=== PATIENT | male | born 1995 | race Caucasian/White ===

== ENCOUNTER 2022-08-16 03:06 | Emergency (ER) | payer OTHER, MEDICAID, SELFPAY ==
[2022-08-16] VITALS (48 sets, daily range): BP systolic 104–140; BP diastolic 56–92; PULSE 69–122; RESP 12–27; TEMP 36.6–37.8; O2SAT 94–98; BMI 25.7
--- NOTE | 2022-08-16 03:35 | PC.NURSE ---
[facility] called for treatment guidance. 24 hr observation, serial ekgs, seizure precautions, frequent VS monitoring recommended.
[2022-08-16 03:40] LABS: Add Manual Diff / Slide Review NO; Basophils Absolute Auto 0 /uL (0-100); Basophils Percent Auto 0.3 % (0-2); Eosinophils Absolute Auto 0 /uL (0-450); Eosinophils Percent Auto 0.3 % (2-4); Hematocrit 44.1 % (41-53); Lymphocytes Absolute Auto 1000 /uL (1100-4500); Lymphocytes Percent Auto 8.1 % (25-40); Mean Corpuscular Hemoglobin 29.6 PG (26-34); Monocytes Absolute Auto 700 /uL (0-900); Monocytes Percent Auto 5.4 % (3-14); Neutrophils Absolute Auto 10700 /uL (1500-7000); Neutrophils Percent Auto 85.9 % (50-75); Platelet Count 246 X10^3/uL (150-400); Red Blood Cell Count 5.07 X10^6/uL (4.5-5.9); Red Cell Distribution Width 12.1 % (11.6-14.8); White Blood Cell Count 12.5 X10^3/uL (4.5-11.0)
[2022-08-16 03:49] LABS: Acetaminophen < 10 ug/mL (10-30); Alanine Aminotransferase 22 IU/L (<50); Albumin 4.5 g/dL (3.5-5.0); Albumin Globulin Ratio 1.6 (1.0-2.8); Alkaline Phosphatase 74 U/L (38-126); Aspartate Aminotransferase 20 IU/L (17-59); BUN Creatinine Ratio 6.5 (6-22); Bilirubin Total 0.4 mg/dL (0.2-1.3); Blood Urea Nitrogen 5 mg/dL (9-20); Calcium 8.7 mg/dL (8.4-10.2); Carbon Dioxide 26 mmol/L (22-32); Chloride 102 mmol/L (98-107); Estimated Glomerular Filt Rate > 60 mL/min (>60); Ethanol (ETOH) < 10 mg/dL; Globulin 2.9 g/dL (1.7-4.1); Glucose 135 mg/dL (70-100); HEMOLYSIS < 15 (0-50); Potassium 3.1 mmol/L (3.4-5.1); Salicylate < 1.0 mg/dL (<20); Sodium 141 mmol/L (137-145); Total Protein 7.4 g/dL (6.3-8.2)
[2022-08-16 03:56] LABS: COVID19 -Nasal RAPID Negative (Negative)
[2022-08-16 04:03] LABS: Lithium < 0.2 mmol/L (0.6-1.2)
--- NOTE | 2022-08-16 04:28 | ED_ITS ---
HPI - Psych <Barry Lou, DO - Last Filed: 08/17/22 00:06> General Chief Complaint: Psychiatric Symptoms Stated Complaint: took 15 Bupropion Time Seen by Provider: 08/16/22 03:19 Source: patient Mode of arrival: Ambulatory Limitations: no limitations History of Present Illness HPI Narrative: Patient is a 26-year-old male who is here in the emergency department with his father for evaluation after at approximately midnight he took 11 bupropion pills and also some clonazepam. He states that he did this because he does not want to exist anymore. He does have a history of depression. Was seeing a mental health provider and a prescriber for his medications in [facility] but did recently moved to this area. It does not see anyone here locally. Denies any alcohol use but does admit to smoking marijuana. He has battled issues with depression but has never tried to hurt himself in the past. Related Data Home Medications Medication Instructions Recorded Confirmed bupropion HCl 300 mg 24 hr tablet, 300 mg PO DAILY 08/16/22 08/16/22 extended release buspirone 7.5 mg tablet 7.5 mg BID 08/16/22 08/16/22 clonazepam 1 mg tablet 1.5 mg DAILY 08/16/22 08/16/22 duloxetine 30 mg capsule,delayed 30 mg PO DAILY 08/16/22 08/16/22 release duloxetine 60 mg capsule,delayed 60 mg PO DAILY 08/16/22 08/16/22 release gabapentin 300 mg capsule 300 mg TID PRN Anxiety 08/16/22 08/16/22 hydroxyzine pamoate 25 mg capsule 25 mg TID 08/16/22 08/16/22 lithium carbonate 300 mg 900 mg PO BEDTIME 08/16/22 08/16/22 tablet,extended release lurasidone 20 mg tablet (Latuda) 40 mg BEDTIME 08/16/22 08/16/22 lurasidone 40 mg tablet (Latuda) 40 mg DAILY 08/16/22 08/16/22 prazosin 2 mg capsule 2 mg BEDTIME 08/16/22 08/16/22 risperidone 2 mg tablet 2 mg BEDTIME 08/16/22 08/16/22 suvorexant 10 mg tablet (Belsomra) 10 mg PO BEDTIME 08/16/22 08/16/22 tizanidine 4 mg tablet 4 mg BID 08/16/22 08/16/22 vortioxetine 20 mg tablet 20 mg DAILY 08/16/22 08/16/22 (Trintellix) Allergies Allergy/AdvReac Type Severity Reaction Status Date / Time No Known Drug Allergies Allergy Verified 08/16/22 03:20 Review of Systems <Barry Lou DO - Last Filed: 08/17/22 00:06> Constitutional Constitutional: Reports system reviewed and no additional complaints, except as documented Cardiovascular Cardiovascular: Reports system reviewed and no additional complaints, except as documented Respiratory Respiratory: Reports system reviewed and no additional complaints, except as documented Gastrointestinal Gastrointestinal: Reports system reviewed and no additional complaints, except as documented Genitourinary Genitourinary: Reports system reviewed and no additional complaints, except as documented Neurologic Neurologic: Reports system reviewed and no additional complaints, except as documented Psychiatric Psychiatric: Reports system reviewed and no additional complaints, except as documented Patient History <Barry Lou DO - Last Filed: 08/17/22 00:06> Medical History Depression Social History lives independently: Yes Exam <Barry Lou DO - Last Filed: 08/17/22 00:06> Initial Vital Signs Initial Vital Signs: Vital Signs Temperature 98.7 F 08/16/22 03:20 Pulse Rate 118 H 08/16/22 03:20 Respiratory Rate 14 08/16/22 03:20 Blood Pressure 138/92 H 08/16/22 03:20 Pulse Oximetry 98 08/16/22 03:20 Oxygen Delivery Method 08/16/22 03:20 Const General: cooperative and comfortable [facility] Head: normal to inspection Resp Effort & Inspection: normal respiratory effort Auscultation: clear to auscultation bilaterally Cardio Rate: tachycardic Rhythm: regular rhythm GI Inspection: normal to inspection Palpation: soft, No firm, No guarding and No tender Skin General: no rashes or lesions noted Neuro General: patient alert, patient awake and moves all extremities Extrem General: normal to inspection Psych Other: Well-appearing. His somewhat cooperative however is obviously reluctant to answer many questions. He does have outbursts where he cries in the room. Does not specifically say suicidal but states he does not want to ?exist ?anymore and he did take pills because of this. <Cathy Black MD - Last Filed: 08/21/22 05:01> Initial Vital Signs Initial Vital Signs: Vital Signs Temperature 98.7 F 08/16/22 03:20 Pulse Rate 118 H 08/16/22 03:20 Respiratory Rate 14 08/16/22 03:20 Blood Pressure 138/92 H 08/16/22 03:20 Pulse Oximetry 98 08/16/22 03:20 Oxygen Delivery Method 08/16/22 03:20 Course <Barry Lou DO - Last Filed: 08/17/22 00:06> Orders Ordered: Discontinued Medications Acetaminophen (Acetaminophen 325 Mg Tablet) 650 mg PO NOW ONE Stop: 08/16/22 06:12 Last Admin: 08/16/22 06:15 Dose: 650 mg Documented By: MADONNA Acetaminophen (Acetaminophen 325 Mg Tablet) 975 mg PO NOW ONE Stop: 08/16/22 17:30 Last Admin: 08/16/22 17:35 Dose: 975 mg Documented By: TAE Lidocaine HCl (Lidocaine 2% (Glydo) 6 Ml Gel) 6 ml TOP NOW ONE Stop: 08/16/22 04:13 Last Admin: 08/16/22 10:48 Dose: Not Given Documented By: YINKA Lorazepam (Lorazepam 2 Mg/Ml Inj) 1 mg IV NOW ONE Stop: 08/16/22 12:30 Last Admin: 08/16/22 12:35 Dose: 1 mg Documented By: TAE Lorazepam (Lorazepam 2 Mg/Ml Inj) 1 mg IV NOW ONE Stop: 08/16/22 14:47 Last Admin: 08/16/22 14:51 Dose: 1 mg Documented By: TAE Vital Signs Vital signs: Vital Signs - 8 hr 08/16/22 16:30 08/16/22 17:27 08/16/22 17:00 Temperature 100.1 F H Pulse Rate 90 Respiratory Rate 24 Blood Pressure 116/56 L Pulse Oximetry 95 Oxygen Delivery Method 08/16/22 17:00 08/16/22 17:30 08/16/22 18:00 Temperature Pulse Rate 91 H 88 Respiratory Rate 21 22 Blood Pressure 113/61 Pulse Oximetry 96 96 Oxygen Delivery Method 08/16/22 18:00 08/16/22 18:30 08/16/22 19:00 Temperature Pulse Rate 86 85 Respiratory Rate 20 20 Blood Pressure 104/63 Pulse Oximetry 95 94 Oxygen Delivery Method Room Air 08/16/22 19:00 08/16/22 19:30 08/16/22 20:00 Temperature Pulse Rate 82 79 75 Respiratory Rate 20 19 19 Blood Pressure Pulse Oximetry 94 94 95 Oxygen Delivery Method 08/16/22 20:30 08/16/22 20:59 08/16/22 21:00 Temperature Pulse Rate 81 78 Respiratory Rate 20 19 Blood Pressure 104/61 Pulse Oximetry 94 95 Oxygen Delivery Method 08/16/22 21:00 08/16/22 21:30 08/16/22 22:00 Temperature Pulse Rate 69 75 Respiratory Rate 17 18 Blood Pressure 120/70 Pulse Oximetry 96 95 Oxygen Delivery Method 08/16/22 22:00 08/16/22 22:30 08/16/22 23:00 Temperature Pulse Rate 69 84 Respiratory Rate 18 19 Blood Pressure 110/66 Pulse Oximetry 96 96 Oxygen Delivery Method 08/16/22 23:00 08/16/22 23:30 Temperature Pulse Rate 72 74 Respiratory Rate 17 18 Blood Pressure Pulse Oximetry 96 96 Oxygen Delivery Method <Cathy Black MD - Last Filed: 08/21/22 05:01> Orders Ordered: Discontinued Medications Acetaminophen (Acetaminophen 325 Mg Tablet) 650 mg PO NOW ONE Stop: 08/16/22 06:12 Last Admin: 08/16/22 06:15 Dose: 650 mg Documented By: MADONNA Acetaminophen (Acetaminophen 325 Mg Tablet) 975 mg PO NOW ONE Stop: 08/16/22 17:30 Last Admin: 08/16/22 17:35 Dose: 975 mg Documented By: TAE Lidocaine HCl (Lidocaine 2% (Glydo) 6 Ml Gel) 6 ml TOP NOW ONE Stop: 08/16/22 04:13 Last Admin: 08/16/22 10:48 Dose: Not Given Documented By: YINKA Lorazepam (Lorazepam 2 Mg/Ml Inj) 1 mg IV NOW ONE Stop: 08/16/22 12:30 Last Admin: 08/16/22 12:35 Dose: 1 mg Documented By: TAE Lorazepam (Lorazepam 2 Mg/Ml Inj) 1 mg IV NOW ONE Stop: 08/16/22 14:47 Last Admin: 08/16/22 14:51 Dose: 1 mg Documented By: TAE Vital Signs Vital signs: Vital Signs - 8 hr 08/16/22 16:30 08/16/22 17:27 08/16/22 17:00 Temperature 100.1 F H Pulse Rate 90 Respiratory Rate 24 Blood Pressure 116/56 L Pulse Oximetry 95 Oxygen Delivery Method 08/16/22 17:00 08/16/22 17:30 08/16/22 18:00 Temperature Pulse Rate 91 H 88 Respiratory Rate 21 22 Blood Pressure 113/61 Pulse Oximetry 96 96 Oxygen Delivery Method 08/16/22 18:00 08/16/22 18:30 08/16/22 19:00 Temperature Pulse Rate 86 85 Respiratory Rate 20 20 Blood Pressure 104/63 Pulse Oximetry 95 94 Oxygen Delivery Method Room Air 08/16/22 19:00 08/16/22 19:30 08/16/22 20:00 Temperature Pulse Rate 82 79 75 Respiratory Rate 20 19 19 Blood Pressure Pulse Oximetry 94 94 95 Oxygen Delivery Method 08/16/22 20:30 08/16/22 20:59 08/16/22 21:00 Temperature Pulse Rate 81 78 Respiratory Rate 20 19 Blood Pressure 104/61 Pulse Oximetry 94 95 Oxygen Delivery Method 08/16/22 21:00 08/16/22 21:30 08/16/22 22:00 Temperature Pulse Rate 69 75 Respiratory Rate 17 18 Blood Pressure 120/70 Pulse Oximetry 96 95 Oxygen Delivery Method 08/16/22 22:00 08/16/22 22:30 08/16/22 23:00 Temperature Pulse Rate 69 84 Respiratory Rate 18 19 Blood Pressure 110/66 Pulse Oximetry 96 96 Oxygen Delivery Method 08/16/22 23:00 08/16/22 23:30 Temperature Pulse Rate 72 74 Respiratory Rate 17 18 Blood Pressure Pulse Oximetry 96 96 Oxygen Delivery Method [facility] - Psych <Barry Lou, DO - Last Filed: 08/17/22 00:06> Lab Data Attestation: I reviewed the patient's lab results. Result diagrams: 08/16/22 03:30 08/16/22 03:30 Labs: Lab Results 08/16/22 08/16/22 08/16/22 Range/Units 03:30 03:30 03:30 WBC 12.5 H (4.5-11.0) X10^3/uL RBC 5.07 (4.5-5.9) X10^6/uL Hgb 15.0 (13.5-17.5) g/dL Hct 44.1 (41-53) % MCV 87.0 (80-100) fL MCH 29.6 (26-34) PG MCHC 34.0 (30-36) % RDW 12.1 (11.6-14.8) % Plt Count 246 (150-400) X10^3/uL Neut % (Auto) 85.9 H (50-75) % Lymph % (Auto) 8.1 L (25-40) % Gordon % (Auto) 5.4 (3-14) % Eos % (Auto) 0.3 L (2-4) % Baso % (Auto) 0.3 (0-2) % Neut # (Auto) 97902 H (6572-5883) /uL Lymph # (Auto) 1000 L (8504-5094) /uL Gordon # (Auto) 700 (0-900) /uL Eos # (Auto) 0 (0-450) /uL Baso # (Auto) 0 (0-100) /uL Sodium 141 (137-145) mmol/L Potassium 3.1 L (3.4-5.1) mmol/L Chloride 102 (98-107) mmol/L Carbon Dioxide 26 (22-32) mmol/L BUN 5 L (9-20) mg/dL Creatinine 0.77 (0.66-1.25) mg/dL Estimated GFR > 60 (>60) mL/min BUN/Creatinine Ratio 6.5 (6-22) Glucose 135 H (70-100) mg/dL Calcium 8.7 (8.4-10.2) mg/dL Total Bilirubin 0.4 (0.2-1.3) mg/dL AST 20 (17-59) IU/L ALT 22 (<50) IU/L Alkaline Phosphatase 74 (38-126) U/L Total Protein 7.4 (6.3-8.2) g/dL Albumin 4.5 (3.5-5.0) g/dL Globulin 2.9 (1.7-4.1) g/dL Albumin/Globulin Ratio 1.6 (1.0-2.8) TSH 2.34 (0.47-4.68) uIU/mL Salicylates < 1.0 (<20) mg/dL U Opiates 300ng/mL cut (Negative) Ur Oxycodone Screen (Negative) Urine Methadone Screen (Negative) Acetaminophen < 10 (10-30) ug/mL Ur Barbiturates Screen (Negative) U Tricyclic Antidepress (Negative) Ur Phencyclidine Scrn (Negative) Ur Amphetamines Screen (Negative) U Methamphetamines Scrn (Negative) Ur MDMA Scrn (Ecstasy) (Negative) U Benzodiazepines Scrn (Negative) [place] (0.6-1.2) mmol/L Urine Cocaine Screen (Negative) U Marijuana (THC) Screen (Negative) Ethyl Alcohol < 10 ( - 10) mg/dL SARS-CoV-2 (PCR) (Negative) 08/16/22 08/16/22 08/16/22 Range/Units 03:30 03:35 04:40 WBC (4.5-11.0) X10^3/uL RBC (4.5-5.9) X10^6/uL Hgb (13.5-17.5) g/dL Hct (41-53) % MCV (80-100) fL MCH (26-34) PG MCHC (30-36) % RDW (11.6-14.8) % Plt Count (150-400) X10^3/uL Neut % (Auto) (50-75) % Lymph % (Auto) (25-40) % Gordon % (Auto) (3-14) % Eos % (Auto) (2-4) % Baso % (Auto) (0-2) % Neut # (Auto) (6786-9086) /uL Lymph # (Auto) (1557-9901) /uL Gordon # (Auto) (0-900) /uL Eos # (Auto) (0-450) /uL Baso # (Auto) (0-100) /uL Sodium (137-145) mmol/L Potassium (3.4-5.1) mmol/L Chloride (98-107) mmol/L Carbon Dioxide (22-32) mmol/L BUN (9-20) mg/dL Creatinine (0.66-1.25) mg/dL Estimated GFR (>60) mL/min BUN/Creatinine Ratio (6-22) Glucose (70-100) mg/dL Calcium (8.4-10.2) mg/dL Total Bilirubin (0.2-1.3) mg/dL AST (17-59) IU/L ALT (<50) IU/L Alkaline Phosphatase (38-126) U/L Total Protein (6.3-8.2) g/dL Albumin (3.5-5.0) g/dL Globulin (1.7-4.1) g/dL Albumin/Globulin Ratio (1.0-2.8) TSH (0.47-4.68) uIU/mL Salicylates (<20) mg/dL U Opiates 300ng/mL cut Negative (Negative) Ur Oxycodone Screen Negative (Negative) Urine Methadone Screen Negative (Negative) Acetaminophen (10-30) ug/mL Ur Barbiturates Screen Negative (Negative) U Tricyclic Antidepress Negative (Negative) Ur Phencyclidine Scrn Negative (Negative) Ur Amphetamines Screen Negative (Negative) U Methamphetamines Scrn Negative (Negative) Ur MDMA Scrn (Ecstasy) Negative (Negative) U Benzodiazepines Scrn Negative (Negative) [place] < 0.2 L (0.6-1.2) mmol/L Urine Cocaine Screen Negative (Negative) U Marijuana (THC) Screen Positive H (Negative) Ethyl Alcohol ( - 10) mg/dL SARS-CoV-2 (PCR) Negative (Negative) ECG Data Attestation: I personally reviewed and interpreted this ECG as follows: Interpretation: Sinus tachycardia Ventricular rate of 104 Normal axis Normal QRS Normal QTC No ST T wave changes MDM Narrative Medical decision making narrative: Poison control was contacted by nursing staff who stated that the patient needs to be observed for 24 hours. His tachycardia improved. Initially patient was unable to urinate. Bladder scan shows greater than 700 cc of urine. Patient declined the Gil catheter. He was able to eventually urinate and empty his bladder completely. His labs are unremarkable. He is positive for marijuana but he states he did smoke marijuana. No fevers. His father's at bedside. Social work consult placed. Care turned over to Dr. Black at change of shift do continue to observe. 8am Dr Black. Care is assumed. Patient is resting comfortably. Poison control called to check back in. They continued to recommend a minimum of 18 hour observation given the extended release medication. Risks are increased agitation, prolonged QT, hypothermia and seizure The very earliest he could be medically cleared is midnight tonight and 4:00 a.m. is probably a safe for goal. Will need SENIOR CLINICAL DATA COORDINATOR evaluation and may need hospitalization. Patient is seen and evaluated by high school social studies teacher. Apparently has been inpatient to help with his symptoms previously and it was not useful. Does have outpati ent resources. He currently is living with his father who is very involved. Patient agrees to give father all of his medications so that they can be administered without any temptation of taking extra. He contracts for safety. He is given additional outpatient resources to connect with per high school social studies teacher. At this time he will be safe to discharge home with his father sometime late this evening after he has been completely medically cleared. He and his father are both expecting discharge as early as midnight and is late as 3am this morning. 530pm developing a slight fever. Tylenol will be administered. Hyperthermia can be a side effect of the bupropion overdose Dr Lou: Re assumed care of patient. Reviewed patient's workup up to this point. Has been seen by social work. Plan to be is to observe until midnight when he is 24 hours after ingestion of the medication with plan on discharging home under the care of his father with return precautions. Patient continues to be asymptomatic. He states that he feels ?fine? his EKGs have been unremarkable. Plan to be is to discharge home. Both patient and father are in agreement with this. <Cathy Black MD - Last Filed: 08/21/22 05:01> Lab Data Labs: Lab Results 08/16/22 08/16/22 08/16/22 Range/Units 03:30 03:30 03:30 WBC 12.5 H (4.5-11.0) X10^3/uL RBC 5.07 (4.5-5.9) X10^6/uL Hgb 15.0 (13.5-17.5) g/dL Hct 44.1 (41-53) % MCV 87.0 (80-100) fL MCH 29.6 (26-34) PG MCHC 34.0 (30-36) % RDW 12.1 (11.6-14.8) % Plt Count 246 (150-400) X10^3/uL Neut % (Auto) 85.9 H (50-75) % Lymph % (Auto) 8.1 L (25-40) % Gordon % (Auto) 5.4 (3-14) % Eos % (Auto) 0.3 L (2-4) % Baso % (Auto) 0.3 (0-2) % Neut # (Auto) 60029 H (5575-1877) /uL Lymph # (Auto) 1000 L (1384-0718) /uL Gordon # (Auto) 700 (0-900) /uL Eos # (Auto) 0 (0-450) /uL Baso # (Auto) 0 (0-100) /uL Sodium 141 (137-145) mmol/L Potassium 3.1 L (3.4-5.1) mmol/L Chloride 102 (98-107) mmol/L Carbon Dioxide 26 (22-32) mmol/L BUN 5 L (9-20) mg/dL Creatinine 0.77 (0.66-1.25) mg/dL Estimated GFR > 60 (>60) mL/min BUN/Creatinine Ratio 6.5 (6-22) Glucose 135 H (70-100) mg/dL Calcium 8.7 (8.4-10.2) mg/dL Total Bilirubin 0.4 (0.2-1.3) mg/dL AST 20 (17-59) IU/L ALT 22 (<50) IU/L Alkaline Phosphatase 74 (38-126) U/L Total Protein 7.4 (6.3-8.2) g/dL Albumin 4.5 (3.5-5.0) g/dL Globulin 2.9 (1.7-4.1) g/dL Albumin/Globulin Ratio 1.6 (1.0-2.8) TSH 2.34 (0.47-4.68) uIU/mL Salicylates < 1.0 (<20) mg/dL U Opiates 300ng/mL cut (Negative) Ur Oxycodone Screen (Negative) Urine Methadone Screen (Negative) Acetaminophen < 10 (10-30) ug/mL Ur Barbiturates Screen (Negative) U Tricyclic Antidepress (Negative) Ur Phencyclidine Scrn (Negative) Ur Amphetamines Screen (Negative) U Methamphetamines Scrn (Negative) Ur MDMA Scrn (Ecstasy) (Negative) U Benzodiazepines Scrn (Negative) [place] (0.6-1.2) mmol/L Urine Cocaine Screen (Negative) U Marijuana (THC) Screen (Negative) Ethyl Alcohol < 10 ( - 10) mg/dL SARS-CoV-2 (PCR) (Negative) 08/16/22 08/16/22 08/16/22 Range/Units 03:30 03:35 04:40 WBC (4.5-11.0) X10^3/uL RBC (4.5-5.9) X10^6/uL Hgb (13.5-17.5) g/dL Hct (41-53) % MCV (80-100) fL MCH (26-34) PG MCHC (30-36) % RDW (11.6-14.8) % Plt Count (150-400) X10^3/uL Neut % (Auto) (50-75) % Lymph % (Auto) (25-40) % Gordon % (Auto) (3-14) % Eos % (Auto) (2-4) % Baso % (Auto) (0-2) % Neut # (Auto) (6333-2353) /uL Lymph # (Auto) (3309-2572) /uL Gordon # (Auto) (0-900) /uL Eos # (Auto) (0-450) /uL Baso # (Auto) (0-100) /uL Sodium (137-145) mmol/L Potassium (3.4-5.1) mmol/L Chloride (98-107) mmol/L Carbon Dioxide (22-32) mmol/L BUN (9-20) mg/dL Creatinine (0.66-1.25) mg/dL Estimated GFR (>60) mL/min BUN/Creatinine Ratio (6-22) Glucose (70-100) mg/dL Calcium (8.4-10.2) mg/dL Total Bilirubin (0.2-1.3) mg/dL AST (17-59) IU/L ALT (<50) IU/L Alkaline Phosphatase (38-126) U/L Total Protein (6.3-8.2) g/dL Albumin (3.5-5.0) g/dL Globulin (1.7-4.1) g/dL Albumin/Globulin Ratio (1.0-2.8) TSH (0.47-4.68) uIU/mL Salicylates (<20) mg/dL U Opiates 300ng/mL cut Negative (Negative) Ur Oxycodone Screen Negative (Negative) Urine Methadone Screen Negative (Negative) Acetaminophen (10-30) ug/mL Ur Barbiturates Screen Negative (Negative) U Tricyclic Antidepress Negative (Negative) Ur Phencyclidine Scrn Negative (Negative) Ur Amphetamines Screen Negative (Negative) U Methamphetamines Scrn Negative (Negative) Ur MDMA Scrn (Ecstasy) Negative (Negative) U Benzodiazepines Scrn Negative (Negative) [place] < 0.2 L (0.6-1.2) mmol/L Urine Cocaine Screen Negative (Negative) U Marijuana (THC) Screen Positive H (Negative) Ethyl Alcohol ( - 10) mg/dL SARS-CoV-2 (PCR) Negative (Negative) ECG Data Interpretation: 03:34 Sinus tachycardia Ventricular rate of 104 Normal axis Normal QRS Normal QTC at [address] T wave changes 8:25 Sinus rhythm at 95 QTC 452 MDM Narrative Medical decision making narrative: Poison control was contacted by nursing staff who stated that the patient needs to be observed for 24 hours. His tachycardia improved. Initially patient was unable to urinate. Bladder scan shows greater than 700 cc of urine. Patient declined the Gil catheter. He was able to eventually urinate and empty his bladder completely. His labs are unremarkable. He is positive for marijuana but he states he did smoke marijuana. No fevers. His father's at bedside. Social work consult placed. Care turned over to Dr. Black at change of shift do continue to observe. 8am Dr Black. Care is assumed. Patient is resting comfortably. Poison control called to check back in. They continued to recommend a minimum of 18 hour observation given the extended release medication. Risks are increased agitation, prolonged QT, hypothermia and seizure The very earliest he could be medically cleared is midnight tonight and 4:00 a.m. is probably a safe for goal. Will need SENIOR CLINICAL DATA COORDINATOR evaluation and may need ho spitalization. Patient is seen and evaluated by high school social studies teacher. Apparently has been inpatient to help with his symptoms previously and it was not useful. Does have outpatient resources. He currently is living with his father who is very involved. Patient agrees to give father all of his medications so that they can be administered without any temptation of taking extra. He contracts for [employer]. He is given additional outpatient resources to connect with per high school social studies teacher. At this time he will be safe to discharge home with his father sometime late this evening after he has been completely medically cleared. He and his father are both expecting discharge as early as midnight and is late as 3am this morning. 530pm developing a slight fever. Tylenol will be administered. Hyperthermia can be a side effect of the bupropion overdose Discharge Plan Departure Patient Disposition: Home Clinical Impression: Drug overdose, intentional, Depression Instructions: Depression Activity Restrictions/Additional Instructions: It is important that you take your medications as directed. Your being discharged under the care of your father. I do recommend that you make contact with a mental health professional here locally. Return to the emergency department at any point for new or worsening symptoms. Prescriptions: No Action tizanidine 4 mg tablet 4 mg BID Label Comments: TAKE 1 TABLET BY MOUTH TWICE DAILY NEEDED clonazepam 1 mg tablet 1.5 mg DAILY Label Comments: TAKE 1 & 1/2 (ONE & ONE-HALF) TABLETS BY MOUTH ONCE DAILY NEEDED FOR SEVERE ANXIETY lithium carbonate 300 mg tablet extended release 900 mg PO BEDTIME Label Comments: TAKE 3 TABLETS BY MOUTH NIGHTLY AT BEDTIME risperidone 2 mg tablet 2 mg BEDTIME Label Comments: TAKE 1 TABLET BY MOUTH AT BEDTIME DOSE INCREASE gabapentin 300 mg capsule 300 mg TID PRN (Reason: Anxiety) Label Comments: TAKE 1 CAPSULE BY MOUTH THREE TIMES DAILY NEEDED FOR ANXIETY buspirone 7.5 mg tablet 7.5 mg BID Label Comments: TAKE 1 TABLET BY MOUTH TWICE DAILY prazosin 2 mg capsule 2 mg BEDTIME Label Comments: TAKE 1 CAPSULE BY MOUTH ONCE DAILY AT BEDTIME hydroxyzine pamoate 25 mg capsule 25 mg TID Label Comments: TAKE 1 CAPSULE BY MOUTH THREE TIMES DAILY NEEDED bupropion HCl 300 mg tablet extended release 24 hr 300 mg PO DAILY Label Comments: TAKE 1 TABLET BY MOUTH ONCE DAILY IN THE MORNING duloxetine 30 mg capsule,delayed release(DR/EC) 30 mg PO DAILY Label Comments: TAKE 1 CAPSULE BY MOUTH ONCE DAILY WITH 60MG CAPSULE duloxetine 60 mg capsule,delayed release(DR/EC) 60 mg PO DAILY Label Comments: TAKE 1 CAPSULE BY MOUTH ONCE DAILY IN THE MORNING WITH 30MG CAPSULE Latuda 40 mg tablet 40 mg DAILY Label Comments: TAKE 1 TABLET BY MOUTH IN THE MORNING Latuda 20 mg tablet 40 mg BEDTIME Label Comments: TAKE 2 TABLETS BY MOUTH ONCE DAILY AT BEDTIME Trintellix 20 mg tablet 20 mg DAILY Label Comments: TAKE 1 TABLET BY MOUTH EVERY MORNING DOSE INCREASE Belsomra 10 mg tablet 10 mg PO BEDTIME Label Comments: TAKE 1 TABLET BY MOUTH AT BEDTIME Visit Report Forms: Patient Portal/API
[2022-08-16 04:37] LABS: Thyroid Stimulating Hormone 2.34 uIU/mL (0.47-4.68)
[2022-08-16 05:03] LABS: UR Morphine/Opiate cutoff 300 Negative (Negative); Ur Creatinine Normal (Normal); Ur Specific Gravity Normal (Normal); Urine Amphetamines Negative (Negative); Urine Barbiturates Negative (Negative); Urine Benzodiazepines Negative (Negative); Urine Cocaine Negative (Negative); Urine MDMA Negative (Negative); Urine Methadone Negative (Negative); Urine Methamphetamines Negative (Negative); Urine Oxycodone Negative (Negative); Urine Phencyclidine Negative (Negative); Urine Tetrahydrocannabinol Positive (Negative); Urine Tricyclic Antidepressant Negative (Negative); Urine pH Normal (Normal)
--- NOTE | 2022-08-16 05:26 | PC.NURSE ---
Pt was able to void 600.
[2022-08-16] MEDS: ACETAMINOPHEN 325 MG TABLET 650 MG PO (06:15)
--- NOTE | 2022-08-16 08:11 | PC.NURSE ---
[facility] poison control called for clinical update. recommendation of repeating ekg today and looking at qtc interval for prolongation. monitor for fever and seizures, instructed that possible to have delayed seizures especially at the 18 - 24 hour shad with wellbutrin xr ingestion.
--- NOTE | 2022-08-16 09:41 | PC.NURSE ---
Spoke with patient. He is feeling anxious, racing thoughts, unable to sleep states I need to leave this place, I can't stay here any longer. Advised pt we are monitoring him for safety and for poison control. Father at the bedside.
--- NOTE | 2022-08-16 12:10 | PC.NURSE ---
Patient and father express that the patient is having a very hard time being contained to this room. Requesting something that can help him sleep. Explained the plan for SW to evaluate patient and that poison control recommends monitoring patient for 24hr time frame due to medications. Reassured patient we would do our best to help patient be as comfortable as possible and get some rest
--- NOTE | 2022-08-16 12:18 | PC.NURSE ---
pt reports increasing anxiety and inability to sleep or rest. pt expresses frustration at duration of medical monitoring for substance intake. offered to ask md about anxiety med and pt and father aggreable to something to help anxiety and help to rest/get some sleep. MD notified and orders obtained.
[2022-08-16] MEDS: LORazepam 2 MG/ML INJ 1 MG IV ×2 (12:35→14:51)
--- NOTE | 2022-08-16 15:38 | PC.NURSE ---
[facility] called for update, and update provided
[2022-08-16] MEDS: ACETAMINOPHEN 325 MG TABLET 975 MG PO (17:35)
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
[2022-08-17] VITALS: BP 112/73; PULSE 89; RESP 16; O2SAT 96
== END 2022-08-17 00:21 | disposition home or self-care (01) ==
PROVIDERS: Emergency Provider Emergency Medicine
DX: T39.312A Poisoning by propionic acid derivatives, intentional self-harm, initial encounter (principal); T42.4X2A Poisoning by benzodiazepines, intentional self-harm, initial encounter; F32.A Depression, unspecified; R00.0 Tachycardia, unspecified; Z20.822 Contact with and (suspected) exposure to COVID-19
CPT/HCPCS: 36415; 51798; 80053; 80178; 80305; 80320; 80329; 84443; 85025; 87635; 93005; 93010; 96374; 96376; 99285; C9803; G0480; J2060

== ENCOUNTER → 2024-10-16 12:04 | Outpatient (CLI) | payer OTHER, SELFPAY ==
--- NOTE | 2024-10-16 12:05 | DI.MRI.S_ITS ---
PROCEDURE: MR THORACIC SPINE WO CON INDICATIONS: SCOLIOSIS OF THORACIC SPINE TECHNIQUE: Noncontrast sagittal T1 spine echo and T2 fast spin echo, sagittal STIR, and T2 fast spin echo through the thoracic spine. COMPARISON: Outside Film, CR, XR THORACIC SPINE 2 VIEWS, 03/03/2024, 8:55. FINDINGS: Image quality: Excellent. Alignment and Curvature: Minimal upper thoracic levoscoliosis hardly even measurable. Bone Marrow: Marrow is of normal overall signal. No acute vertebral body compression fractures. Spinal Cord: Visualized spinal cord is normal in size and signal. The conus is partially visualized terminating at approximately the superior endplate of L2. Paraspinous Soft Tissues: No paravertebral masses. Miscellaneous: On axial images, central canal and foramina appear widely patent at all scanned levels. IMPRESSION: Trace levoscoliosis of the upper thoracic spine. Dictated by: Frederic Jarrett M.D. on 10/16/2024 at 16:44 Approved by: Frederic Jarrett M.D. on 10/16/2024 at 16:49
== END ==
PROVIDERS: Referring Provider Physician Assistant Surgical; Visit Provider Physician Assistant Surgical
DX: M54.6 Pain in thoracic spine (principal)
CPT/HCPCS: 72146

== ENCOUNTER → 2025-07-05 15:25 | Outpatient (CLI) | payer OTHER, SELFPAY ==
--- NOTE | 2025-07-05 15:27 | DI.MRI.S_ITS ---
PROCEDURE: MR CERVICAL SPINE WO CON INDICATIONS: abnormal reflexes, upper/mid back pain TECHNIQUE: Noncontrast sagittal T1 spin echo and T2 fast spin echo, sagittal STIR, foraminal oblique sagittal T2 fast spin echo, and axial gradient echo or T2 fast spin echo through the cervical spine. COMPARISON: None. FINDINGS: Image quality: Excellent. Alignment and Curvature: Straightening of the cervical lordosis which may be positional. Otherwise normal cervical alignment without listhesis. Bone Marrow: Mildly decreased T1 marrow signal, which is nonspecific, without focal suspicious lesion. Spinal Cord: Visualized spinal cord has normal size and signal. No cerebellar tonsillar herniation. Paraspinous Soft Tissues: No paravertebral masses. Prevertebral soft tissues are normal in thickness. Trace disc osteophyte complexes are present at C3-C4 and C5-C6. No spinal canal narrowing or neural foraminal stenosis at any level. IMPRESSION: No substantial degenerative changes in the cervical spine. No spinal canal narrowing or neural foraminal stenosis at any level. Dictated by: Licha Bradford M.D. on 07/05/2025 at 19:28 Approved by: Licha Bradford M.D. on 07/05/2025 at 19:34
== END ==
PROVIDERS: PCP Nurse Practitioner Family; Referring Provider Physical Medicine & Rehabilitation; Visit Provider Physical Medicine & Rehabilitation
DX: M54.2 Cervicalgia (principal); M54.6 Pain in thoracic spine; R29.2 Abnormal reflex
CPT/HCPCS: 72141